=== PATIENT | male | born 1945 | race Caucasian/White ===

== ENCOUNTER 2023-05-08 08:37 | Day surgery (SDC) | payer MEDICARE, OTHER ==
[2023-05-08] VITALS (15 sets, daily range): BP systolic 112–148; BP diastolic 59–85; PULSE 58–78; RESP 12–18; TEMP 98; O2SAT 94–99
[~2023-05-08] VITALS: Ht 167.6 cm; Wt 64.3 kg
[2023-05-08] MEDS ORDERED: normal saline 1000ml 1,000 ML IV PRN (09:00)
[2023-05-08] MEDS ORDERED: albumin 25% 100mL bottle x 1 IV PRN (09:00)
[2023-05-08] MEDS ORDERED: ACET-1025 PO (09:27)
[2023-05-08] MEDS ORDERED: LORA-269 PO (09:27)
[2023-05-08] MEDS ORDERED: ATOR20TA66 PO (09:27)
[2023-05-08] MEDS ORDERED: OMEP40CA21 PO (09:27)
[2023-05-08] MEDS ORDERED: CITA20TA28 PO (09:27)
[2023-05-08] MEDS ORDERED: FLO0.4C PO (09:27)
[2023-05-08] MEDS ORDERED: MULT-227 PO (09:27)
[2023-05-08] MEDS ORDERED: MELO-102 PO (09:27)
[2023-05-08] MEDS ORDERED: TRIA10.8 BOTHNARES (09:27)
[2023-05-08 10:02] LABS: BASOPHILS # (AUTO) 0.1 X10'3 (0-0.2); BASOPHILS % (AUTO) 1.7 % (0-1); EOSINOPHILS # (AUTO) 0.2 X10'3 (0-0.9); EOSINOPHILS % (AUTO) 3.4 % (0-6); LYMPHOCYTES % (AUTO) 15.9 % (21-51); MEAN CORPUSCULAR HEMOGLOBIN 31.7 PG (27.0-31.0); MEAN CORPUSCULAR HGB CONC 34.5 g/dL (33.0-36.5); MEAN CORPUSCULAR VOLUME 91.7 FL (78-98); MEAN PLATELET VOLUME 6.6 FL (7.4-10.4); MONOCYTES # (AUTO) 0.4 X10'3 (0-0.9); MONOCYTES % (AUTO) 7.2 % (2-12); NEUTROPHILS # (AUTO) 4.4 X10'3 (1.8-7.7); NEUTROPHILS % (AUTO) 71.8 % (42-75); PRE OP HEMATOCRIT 38.9 % (42.0-52.0); PRE OP HEMOGLOBIN 13.4 g/dL (14.0-17.9); PRE OP PLATELET COUNT 206 X10'3 (140-440); RED BLOOD COUNT 4.24 X10'6 (4.70-6.10); RED CELL DISTRIBUTION WIDTH 13.9 % (11.5-14.5)
[2023-05-08] MEDS ORDERED: sodium chloride 0.45% 1,000 ML IV SCH (10:50)
[2023-05-08] MEDS ORDERED: midazolam 1 mg/ML 2ml injection ONE (12:49)
[2023-05-08] MEDS ORDERED: LIDOcaine 1% (10mg/ml) 2ml vial ONE (12:49)
[2023-05-08] MEDS ORDERED: fentaNYL/PF 50MCG/1 ML 2ML syringe ONE (12:49)
== END 2023-05-08 16:45 | disposition home or self-care (01) ==
LOC: SSTAY O 08:37
PROVIDERS: ATTEND Radiology Diagnostic Radiology
DX: R91.8 Other nonspecific abnormal finding of lung field (principal); J98.4 Other disorders of lung; J84.10 Pulmonary fibrosis, unspecified; K21.9 Gastro-esophageal reflux disease without esophagitis; E78.5 Hyperlipidemia, unspecified; F17.290 Nicotine dependence, other tobacco product, uncomplicated; Z85.038 Personal history of other malignant neoplasm of large intestine; Z98.890 Other specified postprocedural states; Z90.49 Acquired absence of other specified parts of digestive tract; Z88.5 Allergy status to narcotic agent; Z79.899 Other long term (current) drug therapy; Z98.52 Vasectomy status
CPT/HCPCS: 32408; 36415; 71045; 85025; 85610; J2250; J3010; J7030; 77012; A4615; J3490